=== PATIENT | female | born 1950 | race African-American/Black ===

== ENCOUNTER 2022-04-10 18:56 | Inpatient (IN) | payer OTHER ==
[2022-04-10 19:01] VITALS: BMI 32.0
[2022-04-10] MEDS ORDERED: DEXAMETHASONE SOD PHOSPHATE 10 MG/1 ML VIAL IVPUSH ONE (19:27)
[2022-04-10] MEDS ORDERED: KETOROLAC TROMETHAMINE 15 MG/ML VIAL IVPUSH ONE (19:29)
[2022-04-10] MEDS ORDERED: DEXAMETHASONE SOD PHOSPHATE 10 MG/1 ML VIAL ONE (19:33)
[2022-04-10] MEDS: ALBUTEROL SO4 2.5/IPRATROPIUM 0.5 INH SOL 3 ML VIAL.NEB. NEB SCH ×3 (19:35→20:00)
[2022-04-10 20:00] LABS: VENOUS O2 SATURATION 93.4 % (70-80); VENOUS PCO2 42.1 mmHg (38-52); VENOUS PH 7.434 (7.310-7.410)
[2022-04-10 20:04] LABS: BASO % 0.5 % (0-2.0); LYMPH % 28.5 % (8-40); MCH 28.5 pg (25.7-33.7); MCHC 34.1 g/dl (32.0-36.0); MEAN CELL VOLUME 83.6 fl (80-96); MEAN PLT VOLUME 7.1 fl (7.5-11.1); MONO % 13.4 % (3.8-10.2); NEUT % 55.6 % (42.8-82.8); PLATELET COUNT 236 10^3/uL (134-434); RBC 4.91 M/mm3 (3.60-5.2); RDW 16.4 % (11.6-15.6); WHITE BLOOD COUNT 7.9 K/mm3 (4.0-10.0)
[2022-04-10 20:11] LABS: INR 1.18 (0.83-1.09); PROTHROMBIN TIME (PATIENT) 13.7 SEC (9.7-13.0)
[2022-04-10] MEDS ORDERED: KETOROLAC TROMETHAMINE 15 MG/ML VIAL ONE (20:12)
[2022-04-10 20:14] LABS: ACTIVATED PTT 32.4 SECONDS (25.2-36.5)
[2022-04-10 20:20] LABS: CALCIUM 8.7 mg/dL (8.5-10.1)
[2022-04-10 20:21] LABS: ALBUMIN 3.1 g/dl (3.4-5.0); BLOOD UREA NITROGEN 13.2 mg/dL (7-18)
[2022-04-10 20:24] LABS: CREATININE 0.8 mg/dL (0.55-1.3)
[2022-04-10 20:26] LABS: BILIRUBIN,TOTAL 0.3 mg/dL (0.2-1); TOT PROT 6.8 g/dl (6.4-8.2)
[2022-04-10 20:29] LABS: N-TERMINAL BNP 275.9 pg/ml (5-125)
[2022-04-11] MEDS ORDERED: ALBUTEROL SO4 0.083% IH SOL 2.5 MG/3 ML VIAL.NEB. NEB PRN ×2 (01:13→14:20)
[2022-04-11] MEDS ORDERED: AZITHROMYCIN IVPB 500 MG in DEXTROSE 5%-WATER - 250 ML IVPB ONE ×2 (01:50→10:00)
[2022-04-11] MEDS ORDERED: AZITHROMYCIN IVPB 500 MG/250 ML BAG IVPB ONE (02:04)
[2022-04-11] MEDS ORDERED: CEFTRIAXONE 1,000 MG in DEXTROSE 5%-WATER - 50 ML IVPB ONE (02:32)
[2022-04-11] MEDS ORDERED: ASPIRIN 81 MG CHEWABLE TABLETS PO ONE (02:47)
[2022-04-11] MEDS ORDERED: ALBUTEROL SO4 0.083% IH SOL 2.5 MG/3 ML VIAL.NEB. NEB ONE (02:56)
[2022-04-11] MEDS: ALBUTEROL SO4 0.083% IH SOL 2.5 MG/3 ML VIAL.NEB. NEB SCH ×2 (03:04→08:19)
[2022-04-11] MEDS ORDERED: CEFTRIAXONE 1 GM/50 ML BAG ONE (03:44)
[2022-04-11 07:05] LABS: HEMATOCRIT 41.6 % (32.4-45.2); HEMOGLOBIN 13.8 GM/dL (10.7-15.3); MCHC 33.3 g/dl (32.0-36.0); MEAN CELL VOLUME 84.2 fl (80-96); MEAN PLT VOLUME 7.1 fl (7.5-11.1); PLATELET COUNT 226 10^3/uL (134-434); RBC 4.94 M/mm3 (3.60-5.2); RDW 16.4 % (11.6-15.6); WHITE BLOOD COUNT 7.1 K/mm3 (4.0-10.0)
[2022-04-11 07:27] LABS: CALCIUM 9.2 mg/dL (8.5-10.1); MAGNESIUM 2.6 mg/dL (1.8-2.4)
[2022-04-11 07:28] LABS: BLOOD UREA NITROGEN 15.3 mg/dL (7-18)
[2022-04-11 07:31] LABS: CREATININE 0.8 mg/dL (0.55-1.3)
[2022-04-11] MEDS: ENOXAPARIN NA (PORCINE) 40 MG/0.4 ML DISP.SYRIN SQ SCH (09:43)
[2022-04-11] MEDS: CLOPIDOGREL BISULFATE 75 MG TABLET (FP) PO SCH (09:44)
[2022-04-11] MEDS ORDERED: methylPREDNISolone NA SUCC 40 MG/1 ML VIAL IVPUSH SCH (10:00)
[2022-04-11] MEDS: CEFTRIAXONE 1 GM in DEXTROSE 5%-WATER - 50 ML IVPB SCH (15:06)
[2022-04-11] MEDS: methylPREDNISolone NA SUCC 40 MG/1 ML VIAL IVPUSH SCH ×2 (15:06→22:52)
[2022-04-11] MEDS: AZITHROMYCIN IVPB 250 MG in DEXTROSE 5%-WATER - 250 ML IVPB SCH (17:13)
[2022-04-11] MEDS: ALBUTEROL SO4 2.5/IPRATROPIUM 0.5 INH SOL 3 ML VIAL.NEB. NEB SCH (20:05)
[2022-04-11] MEDS: guaiFENesin 200 MG/10 ML 10 ML UNIT-DOSE CUPS PO PRN (21:05)
[2022-04-12] MEDS: methylPREDNISolone NA SUCC 40 MG/1 ML VIAL IVPUSH SCH ×3 (06:06→22:20)
[2022-04-12] MEDS ORDERED: LEVOTHYROXINE NA 75 MCG TABLET (FP) PO SCH (07:00)
[2022-04-12] MEDS: ALBUTEROL SO4 2.5/IPRATROPIUM 0.5 INH SOL 3 ML VIAL.NEB. NEB SCH ×3 (07:42→20:05)
[2022-04-12] MEDS: CEFTRIAXONE 1 GM in DEXTROSE 5%-WATER - 50 ML IVPB SCH (09:36)
[2022-04-12] MEDS: ENOXAPARIN NA (PORCINE) 40 MG/0.4 ML DISP.SYRIN SQ SCH (09:37)
[2022-04-12] MEDS: CLOPIDOGREL BISULFATE 75 MG TABLET (FP) PO SCH (09:37)
[2022-04-12] MEDS: AZITHROMYCIN IVPB 250 MG in DEXTROSE 5%-WATER - 250 ML IVPB SCH (09:40)
[2022-04-12 09:59] LABS: BASO % 0.1 % (0-2.0); HEMATOCRIT 41.3 % (32.4-45.2); HEMOGLOBIN 13.7 GM/dL (10.7-15.3); LYMPH % 12.4 % (8-40); MCH 27.9 pg (25.7-33.7); MCHC 33.3 g/dl (32.0-36.0); MEAN CELL VOLUME 83.9 fl (80-96); MEAN PLT VOLUME 7.4 fl (7.5-11.1); MONO % 3.6 % (3.8-10.2); NEUT % 83.9 % (42.8-82.8); PLATELET COUNT 243 10^3/uL (134-434); RBC 4.92 M/mm3 (3.60-5.2); RDW 15.8 % (11.6-15.6); WHITE BLOOD COUNT 11.5 K/mm3 (4.0-10.0)
[2022-04-12] MEDS ORDERED: CARVEDILOL PO SCH (10:00)
[2022-04-12 10:21] LABS: CALCIUM 8.7 mg/dL (8.5-10.1)
[2022-04-12 10:22] LABS: ALBUMIN 2.8 g/dl (3.4-5.0); BLOOD UREA NITROGEN 22.8 mg/dL (7-18)
[2022-04-12 10:25] LABS: CREATININE 0.9 mg/dL (0.55-1.3)
[2022-04-12 10:26] LABS: BILIRUBIN,TOTAL 0.4 mg/dL (0.2-1); TOT PROT 6.6 g/dl (6.4-8.2)
[2022-04-12] MEDS: LOSARTAN POTASSIUM 25 MG TABLET PO SCH (11:00)
[2022-04-12] MEDS: ASPIRIN 81 MG CHEWABLE TABLETS PO SCH (11:00)
[2022-04-12] MEDS: PANTOPRAZOLE 40 MG TABLET PO SCH (11:00)
[2022-04-12] MEDS: ANASTROZOLE 1 MG TABLET PO SCH (11:00)
[2022-04-12] MEDS: LEVOTHYROXINE NA 75 MCG TABLET (FP) PO SCH (11:46)
[2022-04-12] MEDS ORDERED: CEFTRIAXONE 1 GM in DEXTROSE 5%-WATER - 50 ML IVPB SCH (14:00)
[2022-04-12] MEDS: guaiFENesin 200 MG/10 ML 10 ML UNIT-DOSE CUPS PO PRN (21:16)
[2022-04-12] MEDS: MONTELUKAST NA 10 MG TABLET PO SCH (21:17)
[2022-04-12] MEDS: ATORVASTATIN CA 80 MG TABLET (FP) PO SCH (21:18)
[2022-04-13] MEDS: methylPREDNISolone NA SUCC 40 MG/1 ML VIAL IVPUSH SCH ×3 (06:04→22:14)
[2022-04-13] MEDS: LEVOTHYROXINE NA 75 MCG TABLET (FP) PO SCH (06:05)
[2022-04-13] MEDS: ALBUTEROL SO4 2.5/IPRATROPIUM 0.5 INH SOL 3 ML VIAL.NEB. NEB SCH ×3 (07:15→19:50)
[2022-04-13] MEDS: ENOXAPARIN NA (PORCINE) 40 MG/0.4 ML DISP.SYRIN SQ SCH (10:23)
[2022-04-13] MEDS: ASPIRIN 81 MG CHEWABLE TABLETS PO SCH (10:24)
[2022-04-13] MEDS: LOSARTAN POTASSIUM 25 MG TABLET PO SCH (10:24)
[2022-04-13] MEDS: PANTOPRAZOLE 40 MG TABLET PO SCH (10:24)
[2022-04-13] MEDS: CLOPIDOGREL BISULFATE 75 MG TABLET (FP) PO SCH (10:24)
[2022-04-13] MEDS: CEFTRIAXONE 1 GM in DEXTROSE 5%-WATER - 50 ML IVPB SCH (10:24)
[2022-04-13] MEDS: ANASTROZOLE 1 MG TABLET PO SCH (10:26)
[2022-04-13] MEDS: AZITHROMYCIN IVPB 250 MG in DEXTROSE 5%-WATER - 250 ML IVPB SCH (11:41)
[2022-04-13] MEDS: ATORVASTATIN CA 80 MG TABLET (FP) PO SCH (21:08)
[2022-04-13] MEDS: MONTELUKAST NA 10 MG TABLET PO SCH (21:08)
[2022-04-13] MEDS: guaiFENesin 200 MG/10 ML 10 ML UNIT-DOSE CUPS PO PRN (22:20)
[2022-04-14] MEDS: methylPREDNISolone NA SUCC 40 MG/1 ML VIAL IVPUSH SCH ×2 (06:14→21:07)
[2022-04-14] MEDS: LEVOTHYROXINE NA 75 MCG TABLET (FP) PO SCH (06:14)
[2022-04-14] MEDS: ALBUTEROL SO4 2.5/IPRATROPIUM 0.5 INH SOL 3 ML VIAL.NEB. NEB SCH ×3 (08:00→20:06)
[2022-04-14] MEDS: CEFTRIAXONE 1 GM in DEXTROSE 5%-WATER - 50 ML IVPB SCH (09:55)
[2022-04-14] MEDS: ASPIRIN 81 MG CHEWABLE TABLETS PO SCH (09:56)
[2022-04-14] MEDS: LOSARTAN POTASSIUM 25 MG TABLET PO SCH (09:56)
[2022-04-14] MEDS: CLOPIDOGREL BISULFATE 75 MG TABLET (FP) PO SCH (09:56)
[2022-04-14] MEDS: ENOXAPARIN NA (PORCINE) 40 MG/0.4 ML DISP.SYRIN SQ SCH (09:56)
[2022-04-14] MEDS: AZITHROMYCIN IVPB 250 MG in DEXTROSE 5%-WATER - 250 ML IVPB SCH (09:56)
[2022-04-14] MEDS: PANTOPRAZOLE 40 MG TABLET PO SCH (09:56)
[2022-04-14] MEDS: ANASTROZOLE 1 MG TABLET PO SCH (09:58)
[2022-04-14] MEDS: guaiFENesin 200 MG/10 ML 10 ML UNIT-DOSE CUPS PO PRN ×2 (10:12→21:13)
[2022-04-14] MEDS ORDERED: methylPREDNISolone NA SUCC 40 MG/1 ML VIAL IVPUSH SCH ×2 (12:16→19:48)
[2022-04-14] MEDS: ATORVASTATIN CA 80 MG TABLET (FP) PO SCH (21:07)
[2022-04-14] MEDS: MONTELUKAST NA 10 MG TABLET PO SCH (21:07)
[2022-04-15] MEDS: LEVOTHYROXINE NA 75 MCG TABLET (FP) PO SCH (06:11)
[2022-04-15] MEDS: methylPREDNISolone NA SUCC 40 MG/1 ML VIAL IVPUSH SCH ×3 (06:11→21:10)
[2022-04-15] MEDS: ALBUTEROL SO4 2.5/IPRATROPIUM 0.5 INH SOL 3 ML VIAL.NEB. NEB SCH ×3 (08:14→20:30)
[2022-04-15] MEDS: guaiFENesin 200 MG/10 ML 10 ML UNIT-DOSE CUPS PO PRN ×2 (09:42→21:11)
[2022-04-15] MEDS: PANTOPRAZOLE 40 MG TABLET PO SCH (09:43)
[2022-04-15] MEDS: LOSARTAN POTASSIUM 25 MG TABLET PO SCH (09:43)
[2022-04-15] MEDS: ASPIRIN 81 MG CHEWABLE TABLETS PO SCH (09:43)
[2022-04-15] MEDS: CLOPIDOGREL BISULFATE 75 MG TABLET (FP) PO SCH (09:43)
[2022-04-15] MEDS: ANASTROZOLE 1 MG TABLET PO SCH (09:44)
[2022-04-15] MEDS: CEFTRIAXONE 1 GM in DEXTROSE 5%-WATER - 50 ML IVPB SCH (09:44)
[2022-04-15] MEDS: ENOXAPARIN NA (PORCINE) 40 MG/0.4 ML DISP.SYRIN SQ SCH (09:44)
[2022-04-15] MEDS: MONTELUKAST NA 10 MG TABLET PO SCH (21:11)
[2022-04-15] MEDS: ATORVASTATIN CA 80 MG TABLET (FP) PO SCH (21:11)
[2022-04-16] MEDS: LEVOTHYROXINE NA 75 MCG TABLET (FP) PO SCH (06:01)
[2022-04-16] MEDS: methylPREDNISolone NA SUCC 40 MG/1 ML VIAL IVPUSH SCH ×3 (06:01→21:10)
[2022-04-16] MEDS: guaiFENesin 200 MG/10 ML 10 ML UNIT-DOSE CUPS PO PRN ×2 (06:04→21:10)
[2022-04-16] MEDS: ALBUTEROL SO4 2.5/IPRATROPIUM 0.5 INH SOL 3 ML VIAL.NEB. NEB SCH ×2 (08:04→14:19)
[2022-04-16] MEDS: CEFTRIAXONE 1 GM in DEXTROSE 5%-WATER - 50 ML IVPB SCH (09:30)
[2022-04-16] MEDS: ENOXAPARIN NA (PORCINE) 40 MG/0.4 ML DISP.SYRIN SQ SCH (09:30)
[2022-04-16] MEDS: PANTOPRAZOLE 40 MG TABLET PO SCH (09:30)
[2022-04-16] MEDS: ASPIRIN 81 MG CHEWABLE TABLETS PO SCH (09:30)
[2022-04-16] MEDS: CLOPIDOGREL BISULFATE 75 MG TABLET (FP) PO SCH (09:30)
[2022-04-16] MEDS: LOSARTAN POTASSIUM 25 MG TABLET PO SCH (09:31)
[2022-04-16] MEDS: ANASTROZOLE 1 MG TABLET PO SCH (09:36)
[2022-04-16] MEDS: ACETAMINOPHEN 325 MG TABLET (FP) PO PRN (19:54)
[2022-04-16] MEDS: MONTELUKAST NA 10 MG TABLET PO SCH (21:10)
[2022-04-16] MEDS: ATORVASTATIN CA 80 MG TABLET (FP) PO SCH (21:10)
[2022-04-17] MEDS: methylPREDNISolone NA SUCC 40 MG/1 ML VIAL IVPUSH SCH ×3 (06:03→21:11)
[2022-04-17] MEDS: LEVOTHYROXINE NA 75 MCG TABLET (FP) PO SCH (06:03)
[2022-04-17 07:46] LABS: HEMOGLOBIN 13.9 GM/dL (10.7-15.3); MCH 27.3 pg (25.7-33.7); MEAN CELL VOLUME 82.5 fl (80-96); MEAN PLT VOLUME 7.2 fl (7.5-11.1); PLATELET COUNT 254 10^3/uL (134-434); RBC 5.08 M/mm3 (3.60-5.2); RDW 16.6 % (11.6-15.6); WHITE BLOOD COUNT 12.4 K/mm3 (4.0-10.0)
[2022-04-17 07:58] LABS: CALCIUM 8.3 mg/dL (8.5-10.1)
[2022-04-17 07:59] LABS: ALBUMIN 2.5 g/dl (3.4-5.0); BLOOD UREA NITROGEN 24.9 mg/dL (7-18)
[2022-04-17 08:02] LABS: CREATININE 0.7 mg/dL (0.55-1.3)
[2022-04-17 08:04] LABS: BILIRUBIN,TOTAL 0.3 mg/dL (0.2-1); TOT PROT 5.9 g/dl (6.4-8.2)
[2022-04-17 08:42] LABS: ANISOCYTOSIS 0; HELMET CELLS 0; HOWELL-JOLLY BODIES 0; MACROCYTOSIS 0; OVALOCYTE 0; ROULEAU 0; SICKELED CELLS 0; TARGET CELLS 0; TEAR DROP CELLS 0; TOXIC GRANULATION 0
[2022-04-17] MEDS: PANTOPRAZOLE 40 MG TABLET PO SCH (10:01)
[2022-04-17] MEDS: CLOPIDOGREL BISULFATE 75 MG TABLET (FP) PO SCH (10:01)
[2022-04-17] MEDS: LOSARTAN POTASSIUM 25 MG TABLET PO SCH (10:01)
[2022-04-17] MEDS: ENOXAPARIN NA (PORCINE) 40 MG/0.4 ML DISP.SYRIN SQ SCH (10:01)
[2022-04-17] MEDS: ANASTROZOLE 1 MG TABLET PO SCH (10:01)
[2022-04-17] MEDS: guaiFENesin 200 MG/10 ML 10 ML UNIT-DOSE CUPS PO PRN ×2 (10:01→21:11)
[2022-04-17] MEDS: CEFTRIAXONE 1 GM in DEXTROSE 5%-WATER - 50 ML IVPB SCH (10:01)
[2022-04-17] MEDS: ASPIRIN 81 MG CHEWABLE TABLETS PO SCH (10:01)
[2022-04-17] MEDS: MONTELUKAST NA 10 MG TABLET PO SCH (21:11)
[2022-04-17] MEDS: ATORVASTATIN CA 80 MG TABLET (FP) PO SCH (21:11)
[2022-04-17] MEDS: ACETAMINOPHEN 325 MG TABLET (FP) PO PRN (21:12)
[2022-04-18] MEDS: LEVOTHYROXINE NA 75 MCG TABLET (FP) PO SCH (06:22)
[2022-04-18] MEDS: methylPREDNISolone NA SUCC 40 MG/1 ML VIAL IVPUSH SCH ×3 (06:22→21:06)
[2022-04-18] MEDS: ASPIRIN 81 MG CHEWABLE TABLETS PO SCH (09:13)
[2022-04-18] MEDS: PANTOPRAZOLE 40 MG TABLET PO SCH (09:13)
[2022-04-18] MEDS: CLOPIDOGREL BISULFATE 75 MG TABLET (FP) PO SCH (09:13)
[2022-04-18] MEDS: ANASTROZOLE 1 MG TABLET PO SCH (09:13)
[2022-04-18] MEDS: LOSARTAN POTASSIUM 25 MG TABLET PO SCH (09:13)
[2022-04-18] MEDS: AMOX TR/POT CLAV 875MG/125MG TABLETS (FP) PO SCH (20:06)
[2022-04-18] MEDS: MONTELUKAST NA 10 MG TABLET PO SCH (21:07)
[2022-04-18] MEDS: ACETAMINOPHEN 325 MG TABLET (FP) PO PRN (21:07)
[2022-04-18] MEDS: ATORVASTATIN CA 80 MG TABLET (FP) PO SCH (21:07)
[2022-04-18] MEDS: guaiFENesin 200 MG/10 ML 10 ML UNIT-DOSE CUPS PO PRN (21:08)
[2022-04-19] MEDS: LEVOTHYROXINE NA 75 MCG TABLET (FP) PO SCH (06:04)
[2022-04-19] MEDS: methylPREDNISolone NA SUCC 40 MG/1 ML VIAL IVPUSH SCH (06:04)
[2022-04-19] MEDS: ANASTROZOLE 1 MG TABLET PO SCH (09:09)
[2022-04-19] MEDS: CLOPIDOGREL BISULFATE 75 MG TABLET (FP) PO SCH (09:09)
[2022-04-19] MEDS: AMOX TR/POT CLAV 875MG/125MG TABLETS (FP) PO SCH ×2 (09:09→17:27)
[2022-04-19] MEDS: LOSARTAN POTASSIUM 25 MG TABLET PO SCH (09:09)
[2022-04-19] MEDS: ASPIRIN 81 MG CHEWABLE TABLETS PO SCH (09:09)
[2022-04-19] MEDS: PANTOPRAZOLE 40 MG TABLET PO SCH (09:10)
[2022-04-19 13:42] VITALS: RESP 18
[2022-04-19] MEDS: predniSONE 10 MG TABLET (UD) PO SCH (13:52)
[2022-04-19] MEDS: MONTELUKAST NA 10 MG TABLET PO SCH (21:14)
[2022-04-19] MEDS: ATORVASTATIN CA 80 MG TABLET (FP) PO SCH (21:14)
[2022-04-20] MEDS: LEVOTHYROXINE NA 75 MCG TABLET (FP) PO SCH (06:10)
[2022-04-20] MEDS: CLOPIDOGREL BISULFATE 75 MG TABLET (FP) PO SCH (09:20)
[2022-04-20] MEDS: ANASTROZOLE 1 MG TABLET PO SCH (09:20)
[2022-04-20] MEDS: LOSARTAN POTASSIUM 25 MG TABLET PO SCH (09:21)
[2022-04-20] MEDS: predniSONE 10 MG TABLET (UD) PO SCH (09:21)
[2022-04-20] MEDS: ASPIRIN 81 MG CHEWABLE TABLETS PO SCH (09:21)
[2022-04-20] MEDS: PANTOPRAZOLE 40 MG TABLET PO SCH (09:22)
[2022-04-20 14:42] VITALS: BP 141/61; PULSE 83; TEMP 97.8
== END 2022-04-20 18:23 | disposition home or self-care (01) | DRG 190 ==
LOC: JER 18:56 → JERBED 04-11 00:09 → J4S 04-11 07:28
PROVIDERS: ADMIT Family Medicine; ATTEND Internal Medicine
DX: J44.0 Chronic obstructive pulmonary disease with (acute) lower respiratory infection (principal); J18.9 Pneumonia, unspecified organism; J44.1 Chronic obstructive pulmonary disease with (acute) exacerbation; E88.09 Other disorders of plasma-protein metabolism, not elsewhere classified; R07.81 Pleurodynia; I10 Essential (primary) hypertension; E03.9 Hypothyroidism, unspecified; Z85.3 Personal history of malignant neoplasm of breast; E78.5 Hyperlipidemia, unspecified; Z86.718 Personal history of other venous thrombosis and embolism
CPT/HCPCS: 0241U-QW; 36415; 71045-TC-FY; 71046-TC-FY; 71275-TC; 80048; 80053; 82803; 83735; 83880; 84484; 85025; 85027; 85610; 85730; 86850; 86900; 86901; 87040; 87070; 87205; 87899; 93005; 93010; 94640; 94660; 94761; 97116-GP; 97162-GP; 99291; J1100

== ENCOUNTER 2022-07-31 20:02 | Observation (INO) | payer OTHER ==
[2022-07-31 20:10] VITALS: BMI 33.8
[2022-07-31] MEDS ORDERED: LIDOCAINE 5% TOPICAL PATCH TP ONE (20:43)
[2022-07-31] MEDS ORDERED: ACETAMINOPHEN 1000 MG/100 ML BAG IVPB ONE (20:43)
[2022-07-31] MEDS ORDERED: ACETAMINOPHEN INJECTION 100 ML IVPB ONE (21:38)
[2022-07-31 21:57] LABS: BASO % 0.8 % (0-2.0); EOS % 2.6 % (0-4.5); HEMATOCRIT 38.9 % (32.4-45.2); HEMOGLOBIN 13.1 GM/dL (10.7-15.3); LYMPH % 32.5 % (8-40); MCH 27.7 pg (25.7-33.7); MCHC 33.6 g/dl (32.0-36.0); MEAN CELL VOLUME 82.4 fl (80-96); MONO % 8.9 % (3.8-10.2); NEUT % 55.2 % (42.8-82.8); PLATELET COUNT 249 10^3/uL (134-434); RBC 4.72 M/mm3 (3.60-5.2); RDW 14.7 % (11.6-15.6); WHITE BLOOD COUNT 7.1 K/mm3 (4.0-10.0)
[2022-07-31] MEDS ORDERED: LIDOCAINE PATCH REMOVAL MC SCH (22:00)
[2022-07-31 22:04] LABS: INR 1.08 (0.83-1.09); PROTHROMBIN TIME (PATIENT) 12.5 SEC (9.7-13.0)
[2022-07-31 22:07] LABS: ACTIVATED PTT 35.1 SECONDS (25.2-36.5)
[2022-07-31 22:16] LABS: POTASSIUM 3.5 mmol/L (3.5-5.1)
[2022-07-31 22:19] LABS: BLOOD UREA NITROGEN 14.8 mg/dL (7-18); CALCIUM 8.5 mg/dL (8.5-10.1); MAGNESIUM 2.2 mg/dL (1.8-2.4)
[2022-07-31 22:22] LABS: CREATININE 0.8 mg/dL (0.55-1.3)
[2022-07-31 22:24] LABS: BILIRUBIN,TOTAL 0.3 mg/dL (0.2-1); TOT PROT 6.2 g/dl (6.4-8.2)
[2022-07-31] MEDS ORDERED: morphine CARPU-JECT 2 MG/1 ML DISP.SYRIN IVPUSH ONE (22:32)
[2022-07-31] MEDS ORDERED: morphine SULFATE 4 MG/ML VIAL ONE (22:33)
[2022-07-31] MEDS ORDERED: LIDOCAINE 5% TOPICAL PATCH ONE (22:34)
[2022-07-31] MEDS ORDERED: ONDANSETRON 4 MG/2 ML VIAL ONE (23:09)
[2022-07-31] MEDS ORDERED: ONDANSETRON 4 MG/2 ML VIAL IVPUSH ONE (23:15)
[2022-07-31] MEDS ORDERED: SODIUM CHLORIDE 0.9% 500 ML INFUS.BAG IV ONE (23:17)
[2022-08-01] MEDS: PANTOPRAZOLE 40 MG TABLET PO SCH (04:45)
[2022-08-01] MEDS ORDERED: LIDOCAINE PATCH REMOVAL MC ONE (09:00)
[2022-08-01] MEDS: CLOPIDOGREL BISULFATE 75 MG TABLET (FP) PO SCH (14:45)
[2022-08-01] MEDS: LEVOTHYROXINE NA 75 MCG TABLET (FP) PO SCH (14:45)
[2022-08-01] MEDS: ANASTROZOLE 1 MG TABLET PO SCH (16:00)
[2022-08-01] MEDS: CEFTRIAXONE 1 GM in DEXTROSE 5%-WATER - 50 ML IVPB SCH (18:00)
[2022-08-01] MEDS: AZITHROMYCIN IVPB 500 MG/250 ML BAG IVPB SCH (19:39)
[2022-08-01] MEDS: ACETAMINOPHEN 325 MG TABLET (FP) PO PRN (19:41)
[2022-08-01] MEDS ORDERED: HEPARIN NA (PORCINE) 5,000 UNITS/ML 1ML VIAL SQ SCH (22:00)
[2022-08-01] MEDS: ATORVASTATIN CA 80 MG TABLET (FP) PO SCH (22:00)
[2022-08-02] MEDS: ACETAMINOPHEN 325 MG TABLET (FP) PO PRN (07:02)
[2022-08-02] MEDS: CLOPIDOGREL BISULFATE 75 MG TABLET (FP) PO SCH (10:39)
[2022-08-02] MEDS: LEVOTHYROXINE NA 75 MCG TABLET (FP) PO SCH (10:39)
[2022-08-02] MEDS: PANTOPRAZOLE 40 MG TABLET PO SCH (10:39)
[2022-08-02] MEDS: AZITHROMYCIN IVPB 500 MG/250 ML BAG IVPB SCH (10:39)
[2022-08-02] MEDS: CEFTRIAXONE 1 GM in DEXTROSE 5%-WATER - 50 ML IVPB SCH (10:39)
[2022-08-02] MEDS: ANASTROZOLE 1 MG TABLET PO SCH (10:39)
[2022-08-02] MEDS: IBUPROFEN 600 MG TABLET (FP) PO PRN ×2 (12:50→21:43)
[2022-08-02] MEDS ORDERED: LIDOCAINE 5% TOPICAL PATCH TP ONE (18:00)
[2022-08-02] MEDS: ATORVASTATIN CA 80 MG TABLET (FP) PO SCH (21:42)
[2022-08-03] MEDS: LEVOTHYROXINE NA 75 MCG TABLET (FP) PO SCH (06:30)
[2022-08-03] MEDS: PANTOPRAZOLE 40 MG TABLET PO SCH (10:52)
[2022-08-03] MEDS: CLOPIDOGREL BISULFATE 75 MG TABLET (FP) PO SCH (10:52)
[2022-08-03] MEDS: ANASTROZOLE 1 MG TABLET PO SCH (10:52)
[2022-08-03] MEDS: CEFTRIAXONE 1 GM in DEXTROSE 5%-WATER - 50 ML IVPB SCH (10:52)
[2022-08-03] MEDS: LIDOCAINE 5% TOPICAL PATCH TP SCH (10:53)
[2022-08-03] MEDS: AZITHROMYCIN IVPB 500 MG/250 ML BAG IVPB SCH (10:53)
[2022-08-03] MEDS: ATORVASTATIN CA 80 MG TABLET (FP) PO SCH (21:22)
[2022-08-03] MEDS: LIDOCAINE PATCH REMOVAL MC SCH (21:22)
[2022-08-03] MEDS: CARVEDILOL 6.25 MG TABLET (FP) PO SCH (22:19)
[2022-08-04] MEDS: IBUPROFEN 600 MG TABLET (FP) PO PRN (03:05)
[2022-08-04] MEDS: LEVOTHYROXINE NA 75 MCG TABLET (FP) PO SCH (06:12)
[2022-08-04] MEDS: CEFTRIAXONE 1 GM in DEXTROSE 5%-WATER - 50 ML IVPB SCH (10:20)
[2022-08-04] MEDS: LIDOCAINE 5% TOPICAL PATCH TP SCH (10:20)
[2022-08-04] MEDS: AZITHROMYCIN 500 MG TABLET PO SCH (10:21)
[2022-08-04] MEDS: ANASTROZOLE 1 MG TABLET PO SCH (10:21)
[2022-08-04] MEDS: CARVEDILOL 6.25 MG TABLET (FP) PO SCH ×2 (10:21→21:51)
[2022-08-04] MEDS: CLOPIDOGREL BISULFATE 75 MG TABLET (FP) PO SCH (10:21)
[2022-08-04] MEDS: PANTOPRAZOLE 40 MG TABLET PO SCH (10:21)
[2022-08-04] MEDS: LOSARTAN POTASSIUM 50 MG TABLET PO SCH (10:21)
[2022-08-04] MEDS: AZITHROMYCIN IVPB 500 MG/250 ML BAG IVPB SCH (11:18)
[2022-08-04 18:58] LABS: POTASSIUM 3.4 mmol/L (3.5-5.1)
[2022-08-04 19:01] LABS: ALBUMIN 2.8 g/dl (3.4-5.0); BLOOD UREA NITROGEN 12.3 mg/dL (7-18); MAGNESIUM 2.2 mg/dL (1.8-2.4)
[2022-08-04 19:04] LABS: CREATININE 0.8 mg/dL (0.55-1.3)
[2022-08-04 19:05] LABS: BILIRUBIN,TOTAL 0.2 mg/dL (0.2-1); TOT PROT 6.1 g/dl (6.4-8.2)
[2022-08-04] MEDS: ARFORMOTEROL TARTRATE 15 MCG/2 ML VIAL NEB SCH (20:07)
[2022-08-04] MEDS: ATORVASTATIN CA 80 MG TABLET (FP) PO SCH (21:51)
[2022-08-04] MEDS: LIDOCAINE PATCH REMOVAL MC SCH (21:51)
[2022-08-05] MEDS: LEVOTHYROXINE NA 75 MCG TABLET (FP) PO SCH (06:15)
[2022-08-05] MEDS: PANTOPRAZOLE 40 MG TABLET PO SCH (09:12)
[2022-08-05] MEDS: CARVEDILOL 6.25 MG TABLET (FP) PO SCH ×2 (09:12→21:31)
[2022-08-05] MEDS: LOSARTAN POTASSIUM 50 MG TABLET PO SCH (09:13)
[2022-08-05] MEDS: CLOPIDOGREL BISULFATE 75 MG TABLET (FP) PO SCH (09:13)
[2022-08-05] MEDS: CEFTRIAXONE 1 GM in DEXTROSE 5%-WATER - 50 ML IVPB SCH (09:13)
[2022-08-05] MEDS: LIDOCAINE 5% TOPICAL PATCH TP SCH (09:13)
[2022-08-05] MEDS: ANASTROZOLE 1 MG TABLET PO SCH (09:14)
[2022-08-05] MEDS: AZITHROMYCIN 500 MG TABLET PO SCH (09:14)
[2022-08-05] MEDS ORDERED: ONDANSETRON 4 MG/2 ML VIAL IVPUSH ONE (11:15)
[2022-08-05] MEDS: ATORVASTATIN CA 80 MG TABLET (FP) PO SCH (21:31)
[2022-08-05] MEDS: LIDOCAINE PATCH REMOVAL MC SCH (21:31)
[2022-08-06] MEDS: LEVOTHYROXINE NA 75 MCG TABLET (FP) PO SCH (06:13)
[2022-08-06] MEDS: ARFORMOTEROL TARTRATE 15 MCG/2 ML VIAL NEB SCH ×3 (08:19→18:24)
[2022-08-06] MEDS: CEFTRIAXONE 1 GM in DEXTROSE 5%-WATER - 50 ML IVPB SCH (09:55)
[2022-08-06] MEDS: LOSARTAN POTASSIUM 50 MG TABLET PO SCH (09:55)
[2022-08-06] MEDS: PANTOPRAZOLE 40 MG TABLET PO SCH (09:55)
[2022-08-06] MEDS: CARVEDILOL 6.25 MG TABLET (FP) PO SCH ×2 (09:55→21:34)
[2022-08-06] MEDS: ANASTROZOLE 1 MG TABLET PO SCH (09:55)
[2022-08-06] MEDS: LIDOCAINE 5% TOPICAL PATCH TP SCH (09:55)
[2022-08-06] MEDS: AZITHROMYCIN 500 MG TABLET PO SCH (09:55)
[2022-08-06] MEDS: CLOPIDOGREL BISULFATE 75 MG TABLET (FP) PO SCH (09:55)
[2022-08-06 12:01] LABS: ALBUMIN 2.8 g/dl (3.4-5.0); BLOOD UREA NITROGEN 14.1 mg/dL (7-18); CALCIUM 8.9 mg/dL (8.5-10.1)
[2022-08-06 12:04] LABS: CREATININE 0.8 mg/dL (0.55-1.3)
[2022-08-06 12:06] LABS: BILIRUBIN,TOTAL 0.4 mg/dL (0.2-1); TOT PROT 5.8 g/dl (6.4-8.2)
[2022-08-06] MEDS: BUDESONIDE/FORMETEROL FUMARATE 160/4.5 mcg INHALER IH SCH ×2 (14:33→21:35)
[2022-08-06 14:51] VITALS: RESP 20
[2022-08-06] MEDS: ATORVASTATIN CA 80 MG TABLET (FP) PO SCH (21:34)
[2022-08-06] MEDS: LIDOCAINE PATCH REMOVAL MC SCH (21:35)
[2022-08-07] MEDS: LEVOTHYROXINE NA 75 MCG TABLET (FP) PO SCH (06:33)
[2022-08-07] MEDS: CEFTRIAXONE 1 GM in DEXTROSE 5%-WATER - 50 ML IVPB SCH (09:21)
[2022-08-07] MEDS: CLOPIDOGREL BISULFATE 75 MG TABLET (FP) PO SCH (09:22)
[2022-08-07] MEDS: AZITHROMYCIN 500 MG TABLET PO SCH (09:22)
[2022-08-07] MEDS: LIDOCAINE 5% TOPICAL PATCH TP SCH (09:22)
[2022-08-07] MEDS: PANTOPRAZOLE 40 MG TABLET PO SCH (09:22)
[2022-08-07] MEDS: LOSARTAN POTASSIUM 50 MG TABLET PO SCH (09:22)
[2022-08-07] MEDS: CARVEDILOL 6.25 MG TABLET (FP) PO SCH (09:22)
[2022-08-07] MEDS: ANASTROZOLE 1 MG TABLET PO SCH (09:23)
[2022-08-07] MEDS: BUDESONIDE/FORMETEROL FUMARATE 160/4.5 mcg INHALER IH SCH (09:23)
[2022-08-07 10:37] VITALS: BP 134/65; PULSE 70; TEMP 98.1
== END 2022-08-07 14:03 | disposition home or self-care (01) ==
LOC: JER 20:02 → JERBED 08-01 02:29 → J4W 08-01 14:14
PROVIDERS: ADMIT Internal Medicine; ATTEND Internal Medicine
PROC: 3E033NZ Introduction of Analgesics, Hypnotics, Sedatives into Peripheral Vein, Percutaneous Approach (ICD-10-PCS; principal; 2022-08-01)
PROC: 3E033GC Introduction of Other Therapeutic Substance into Peripheral Vein, Percutaneous Approach (ICD-10-PCS; 2022-08-01)
PROC: 3E0337Z Introduction of Electrolytic and Water Balance Substance into Peripheral Vein, Percutaneous Approach (ICD-10-PCS; 2022-08-01)
DX: J18.9 Pneumonia, unspecified organism (principal); C50.919 Malignant neoplasm of unspecified site of unspecified female breast; R09.02 Hypoxemia; J44.1 Chronic obstructive pulmonary disease with (acute) exacerbation; I10 Essential (primary) hypertension; Z90.10 Acquired absence of unspecified breast and nipple; E78.5 Hyperlipidemia, unspecified; E03.9 Hypothyroidism, unspecified; E66.8 Other obesity; R06.02 Shortness of breath; R07.9 Chest pain, unspecified; Z68.33 Body mass index [BMI] 33.0-33.9, adult; Z86.718 Personal history of other venous thrombosis and embolism; Z91.018 Allergy to other foods
CPT/HCPCS: 36415; 71045-TC-FY; 71275-TC; 72128-TC; 72131-TC; 74177-TC; 80053; 80061; 82550; 83036; 83690; 83735; 83880; 84443; 84484; 85025; 85610; 85730; 87899; 93005; 93010; 93306-TC; 94640; 96365; 96375; 96376; 99285-25; G0378; Q9967

== ENCOUNTER 2022-11-03 04:47 | Day surgery (SDC) | payer OTHER ==
[2022-11-02 14:03] VITALS: BMI 33.6
[2022-11-03 09:02] VITALS: TEMP 98.4
[2022-11-03 09:30] VITALS: PULSE 54; RESP 20
[2022-11-03 09:31] VITALS: BP 147/72
== END 2022-11-03 10:00 | disposition home or self-care (01) ==
LOC: JASU-ENDO 04:47
PROVIDERS: ATTEND Student in an Organized Health Care Education/Training Program
PROC: 0DBP8ZX Excision of Rectum, Via Natural or Artificial Opening Endoscopic, Diagnostic (ICD-10-PCS; 2022-11-03)
PROC: 0DB68ZX Excision of Stomach, Via Natural or Artificial Opening Endoscopic, Diagnostic (ICD-10-PCS; 2022-11-03)
PROC: 0DB78ZX Excision of Stomach, Pylorus, Via Natural or Artificial Opening Endoscopic, Diagnostic (ICD-10-PCS; 2022-11-03)
PROC: 0DB68ZX Excision of Stomach, Via Natural or Artificial Opening Endoscopic, Diagnostic (ICD-10-PCS; 2022-11-03)
PROC: 0DBH8ZX Excision of Cecum, Via Natural or Artificial Opening Endoscopic, Diagnostic (ICD-10-PCS; principal; 2022-11-03 08:30)
DX: Z12.11 Encounter for screening for malignant neoplasm of colon (principal); D12.0 Benign neoplasm of cecum; K62.1 Rectal polyp; K31.7 Polyp of stomach and duodenum; K29.50 Unspecified chronic gastritis without bleeding; K57.30 Diverticulosis of large intestine without perforation or abscess without bleeding
CPT/HCPCS: 88305-TC; 88342-TC

== ENCOUNTER 2023-02-18 14:55 | Emergency (ER) | payer OTHER ==
[2023-02-18 15:24] VITALS: BP 138/70; PULSE 73; RESP 18; TEMP 99; BMI 34.4
== END 2023-02-18 15:48 | disposition left against medical advice (07) ==
LOC: JERFT 14:55
DX: U07.1 COVID-19 (principal)
CPT/HCPCS: 99281-25